=== PATIENT | male | born 2005 | race Caucasian/White ===

== ENCOUNTER 2024-08-23 12:03 | Emergency (ER) | payer BC, SELFPAY ==
[2024-08-23 12:03] VITALS: BP 130/70; PULSE 51; RESP 14; TEMP 36.2; O2SAT 100; BMI 19.1
[2024-08-23 13:26] LABS: Hematocrit 45.3 % (40-54); Hemoglobin 15.6 g/dL (13.0-16.5); Immature Granulocytes Count 0.020 X10^3/uL (0.0-0.0); Mean Corp Hgb Conc 34.4 g/dL (32-36); Mean Corpuscular Volume 88.1 fL (80-94); Mean Platelet Vol. 9.5 fl (6.2-12.0); NRBC Flagged by Analyzer 0 % (0-5); Platelet Count 241 K/mm3 (150-450); RBC Distribution Width CV 11.7 % (11.6-14.6); RBC Distribution Width SD 37.8 fl (35.1-43.9); Red Blood Count 5.14 M/mm3 (4.6-6.2); White Blood Count 4.4 K/mm3 (4.4-11.0)
[2024-08-23 13:32] LABS: Barbiturate Urine NEGATIVE (< 200 ng/mL); Benzodiazepine Urine NEGATIVE (< 200 ng/mL); PCP Urine NEGATIVE (< 25 ng/mL); THC Urine PRESUMPTIVE POSITIVE (< 50 ng/mL)
[2024-08-23 13:55] LABS: Alcohol, Blood (Medical)-Serum < 10.1 mg/dL (<=10.0)
[2024-08-23 14:03] LABS: AST(SGOT) 17 U/L (<=37); Alanine Aminotransfer ALT/SGPT < 5 U/L (<=46); Albumin, Serum 4.9 g/dL (3.5-5.0); Alkaline Phosphatase 72 U/L (40-129); Anion Gap 13 (5-15); BUN 12 mg/dL (4-19); BUN/Creat Ratio 11.4 RATIO (10-20); Calcium,Total 9.3 mg/dL (7.6-11.0); Carbon Dioxide 24.2 mmol/L (21.0-32.0); Chloride 99 mmol/L (98-108); Estimated Creatinine Clearance 104.58 ml/min (50-250); Globulin 2.8 g/dL (2.2-4.2); Glucose 86 mg/dL (70-99); Potassium 4.0 mmol/L (3.3-5.1)
--- NOTE | 2024-08-23 14:12 | EX.ED.VIS.PS ---
HPI HPI - Psych History of Present Illness Chief Complaint: Suicidal Narrative Narrative: 19-year-old male past medical history of depression and anxiety, not on medication, presents with his father because of increasing suicidal ideation. He relates this to a break-up that he had with his girlfriend recently. He was moving his things out of the house as he lived with her previously and is currently living with his grandmother. He states he saw something on her telephone which upset him. He has not been able to stop thinking about it. According to his dad, they called a primary care provider but he was unable to be seen because the patient had called him on Thursday, approximately 2 days ago, and he states that he was having thoughts of hurting himself. Additionally, patient relates history that about a month ago, he was upset and took more ibuprofen than he was supposed to. He has partial custody of his son and he was with him over the last 2 days, when the patient stated that he would not hurt himself while he had his son but was unsure what he might do when his son was not with him. He presents because of increasing suicidal ideation. Father reports that they called the counseling center, but he would not be able to be seen for at least 2 weeks. Patient states that he is having increasing thoughts of suicide, and while does not have a specific plan, that he would hurt himself in any way that he could. [facility] Medical History Mental health problem Home Medications ?Medication ?Instructions ?Recorded ?Last Taken ?Type NK 08/23/24 Unknown History Allergy/AdvReac Type Severity Reaction Status Date / Time No Known Allergies Allergy Verified 08/23/24 12:03 Social History Smoking Status: Never smoker ROS ROS ED ROS Narrative Review of systems positive for increasing suicidal ideation, no specific plan. No somatic symptoms, no fevers or chills, no cough, no nausea or vomiting. Increasing depression. EXAM Physical Exam Narrative Exam Narrative: Afebrile. Vital signs noted. Nontoxic-appearing. Cardiovascular examination reveals mild bradycardia. Lungs clear to auscultation bilaterally. Abdomen is soft, nontender, without guarding or rebound. Positive bowel sounds. Neurological examination is nonfocal, nonlateralizing. Psychiatric examination shows he has more of a depressed, flat affect with thoughts of suicide but no specific plan. No internal stimulation, no active hallucinations. Const Vital Signs: 08/23/24 12:03 Temperature 97.1 F L Temperature Source Temporal Pulse Rate 51 L Respiratory Rate 14 Blood Pressure 130/70 H Blood Pressure Mean 90 Pulse Ox 100 Oxygen Delivery Method Room Air MDM MDM MDM Narrative Medical decision making narrative: Differential diagnosis includes but not limited to depression with suicidal thoughts versus suicidal ideation with plan. Medical clearance labs were obtained. I reviewed his laboratory work and they are grossly unremarkable including CBC and CMP except for total bili slightly elevated at 1.86 which I think is nonspecific and cannabinoids presumptive positive, but he states that he did use marijuana recently. Ethyl alcohol negative at less than 10.1. At this point in time, I feel he is medically cleared for evaluation. He may require admission as he states last time he took ibuprofen as an overdose but was never evaluated. He denies any previous hospitalization in a psychiatric facility. I reviewed his laboratory work and he has normal white count 4.4 with hemoglobin normal at 15.6, hematocrit 45.3. I do feel that he is medically cleared for evaluation by case management. In discussion with them, it was felt that given his increased suicidality, and his threats that he is unsure as to what would happen now that he does not have his son with him, they recommended placement. He is currently pending placement at psychiatric facility and will be signed out to the oncoming physician to ensure transfer. Patient is in stable condition. History & Record Review Discussion w/independent historian: Patient and Family (Father) Additional record(s) reviewed:: No prior records Lab Data Attestation: I reviewed the patient's lab results. Labs: Laboratory Results - last 24 hr 08/23/24 12:55 WBC 4.4 RBC 5.14 Hgb 15.6 Hct 45.3 MCV 88.1 MCH 30.4 MCHC 34.4 RDW Std Deviation 37.8 RDW Coeff of Isiah 11.7 Plt Count 241 MPV 9.5 Immature Gran % (Auto) 0.500 Neut % (Auto) 56.9 Lymph % (Auto) 30.2 Miller % (Auto) 10.4 H Eos % (Auto) 0.9 Baso % (Auto) 1.1 H Absolute Neuts (auto) 2.5 Absolute Lymphs (auto) 1.33 Nucleated RBC % 0 Sodium 136 Potassium 4.0 Chloride 99 Carbon Dioxide 24.2 Anion Gap 13 BUN 12 Creatinine 1.02 Estim Creat Clear Calc 104.58 Est GFR (MDRD) Non-Af 108 BUN/Creatinine Ratio 11.4 Glucose 86 Calcium 9.3 Total Bilirubin 1.86 H AST 17 ALT < 5 Alkaline Phosphatase 72 Total Protein 7.6 Albumin 4.9 Globulin 2.8 Albumin/Globulin Ratio 1.8 Urine Opiates Screen NEGATIVE U Buprenorphine Qual NEGATIVE Ur Oxycodone Screen NEGATIVE Urine Methadone Screen NEGATIVE Urine Fentanyl Screen NEGATIVE Ur Barbiturates Screen NEGATIVE Ur Phencyclidine Scrn NEGATIVE Ur Amphetamines Screen NEGATIVE U Benzodiazepines Scrn NEGATIVE Urine Cocaine Screen NEGATIVE U Cannabinoids Screen PRESUMPTIVE POSITIVE Ethyl Alcohol < 10.1 Discharge Plan Triage Chief Complaint: Suicidal ED Provider: Darrell Gonzalez Dx/Rx/DC Orders Prescriptions: No Action NK Primary Care Provider: Care Physician,No Primary Referrals: Care Physician,No Primary [Primary Care Provider] - Print Language: [place]
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
--- NOTE | 2024-08-23 17:08 | CM.ED ---
Social work 1550: called [facility] (ph: ) and spoke with Cadence. Beds available, so referral faxed (f: ). 1610: Cadence from [facility] called back with accepting information. Dr. Kim N2N: , option 7 [facility] unit Nurse, doctor, and patient updated. No further needs at this time. Brianna Cabrera, TREE SURGEON HELPER, DOMESTIC HOUSEKEEPER
--- NOTE | 2024-08-23 17:08 | CM.ED ---
Social work 1550: called [facility] (ph: ) and spoke with Cadence. Beds available, so referral faxed (f: ). 1610: Cadence from [facility] called back with accepting information. Dr. Kim N2N: , option 7 [facility] unit Nurse, doctor, and patient updated. No further needs at this time. Brianna Cabrera, SAMPLE PATTERNMAKER, SERVICE CLEANER
--- NOTE | 2024-08-23 17:17 | PCA ---
GOING TO [place] ACCEPTING DR. ABDI
--- NOTE | 2024-08-23 17:17 | PCA ---
GOING TO [place] ACCEPTING DR. ABDI
--- NOTE | 2024-08-23 18:47 | ED.RN ---
multiple attempts to given report to [facility] up- unable to take report at this time. informed intake to please call this RN back by 1900.
--- NOTE | 2024-08-23 18:47 | ED.RN ---
multiple attempts to given report to [facility] up- unable to take report at this time. informed intake to please call this RN back by 1900.
[2024-08-23 18:49] VITALS: BP 129/82; PULSE 50; RESP 18; TEMP 36.8; O2SAT 100
--- NOTE | 2024-08-23 21:20 | ED.RN ---
This RN attempted to call intake to give report, no answer. Attempted to call and press option 7 per intake request upon acceptance with no success.,
--- NOTE | 2024-08-23 21:20 | ED.RN ---
This RN attempted to call intake to give report, no answer. Attempted to call and press option 7 per intake request upon acceptance with no success.,
== END 2024-08-23 21:23 ==
PROVIDERS: Emergency Provider Emergency Medicine; Visit Provider Emergency Medicine
DX: R45.851 Suicidal ideations (principal); F41.9 Anxiety disorder, unspecified; F32.A Depression, unspecified
CPT/HCPCS: 36415; 80053; 80307; 82077; 85025; 99285